=== PATIENT | female | born 1965 | race Caucasian/White ===

== ENCOUNTER 2019-12-31 13:01 | Emergency (ER) | payer OTHER, BC, SELFPAY ==
[2019-12-31] VITALS (9 sets, daily range): BP systolic 119–147; BP diastolic 83–97; PULSE 69–118; RESP 16–20; TEMP 36.8; O2SAT 94–98; BMI 23.9
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
--- NOTE | 2019-12-31 13:15 | ECG_ITS ---
[facility] Test Date: 2019-12-31 Pat Name: Iman Izquierdo Department: Room: Gender: Female Medical Transcriptionist: : 1965 Requested By: Ayaka Mejia Order Number: [id number] Kamla MD: Zonia Jones M.D. Measurements Intervals [place] Rate: 120 P: 55 AR: 128 QRS: -10 QRSD: 94 T: 73 QT: 339 QTc: 480 Interpretive Statements SINUS TACHYCARDIA LOW QRS VOLTAGE IN PRECORDIAL LEADS [QRS DEFLECTION < 1.0 mV IN CHEST LEADS] POSSIBLE ANTERIOR MYOCARDIAL INFARCTION , PROBABLY OLD [30 ms Q WAVE IN V3/V4, OR R < 0.2 mV IN V4] ABNORMAL RHYTHM ECG Compared to ECG 11/16/2017 21:32:10 Low QRS voltage now present Myocardial infarct finding now present Atrial abnormality no longer present Electronically Signed On 12-31-2019 20:21:38 CDT by Zonia Jones M.D. [id number] f
[2019-12-31 13:46] LABS: Basophils % 0.4 %; Eosinophils # 0.1 10^3/uL (0.0-0.8); Hematocrit 40.7 % (37.0-47.0); Hemoglobin 13.8 g/dL (11.5-15.3); Lymphocytes # 1.4 10^3/uL (0.8-4.8); Lymphocytes % 14.5 %; Mean Corpuscular HGB Conc 33.9 g/dL (30.0-36.0); Mean Corpuscular Hemoglobin 31.1 pg (28.0-34.0); Mean Corpuscular Volume 91.7 fL (81-99); Mean Platelet Volume 10.1 fL (7.4-10.4); Monocytes # 0.6 10^3/uL (0.2-0.9); Monocytes % 5.9 %; Neutrophils # 7.46 10^3/uL (1.8-7.7); Neutrophils % 77.6 %; Nucleated Red Blood Cells % 0 %; Platelet Count 251 10^3/cmm (130-400); Red Blood Count 4.44 10^6/uL (4.1-5.3); Red Cell Distribution Width 12.3 % (12.1-15.1); White Blood Count 9.6 10^3/uL (4.0-10.0)
[2019-12-31 14:06] LABS: Alanine Aminotransferase 64 U/L (0-33); Albumin Level 4.7 g/dL (3.5-5.2); Alcohol Level 228 mg/dL (0-10); Alkaline Phosphatase 107 IU/L (35-105); Anion Gap 17.7 (5-19); Aspartate Amino Transferase 84 U/L (0-32); Blood Urea Nitrogen 11 mg/dL (6-20); Calcium 9.4 mg/dL (8.5-10.5); Carbon Dioxide 22 mmol/L (22-29); Chloride 97 mmol/L (98-107); Globulin 2.5 g/dL (1.3-4.6); Glomerular Filtration Rate 87.5 mL/min (90-130); Glucose 129 mg/dL (65-115); Osmolality Calculated 274 mOsm/kg (285-295); Potassium 3.7 mmol/L (3.5-5.1); Sodium 133 mmol/L (136-145); Total Bilirubin 0.3 mg/dL (0.15-1.2); Total Protein 7.2 g/dL (6.6-8.7)
[2019-12-31 14:09] LABS: Troponin(5th) Baseline 6 ng/L (0-10)
[2019-12-31 14:18] LABS: INR 0.92 (0.8-1.2)
--- NOTE | 2019-12-31 15:15 | ECG_ITS ---
[facility] Test Date: 2019-12-31 Pat Name: Iman Izquierdo Department: Room: Gender: Female Porcelain Enameler: : 1965 Requested By: Ayaka Mejia Order Number: [id number] Kamla MD: Zonia Jones M.D. Measurements Intervals [place] Rate: 109 P: 58 NM: 132 QRS: -19 QRSD: 85 T: 101 QT: 300 QTc: 405 Interpretive Statements SINUS TACHYCARDIA POSSIBLE LEFT ATRIAL ENLARGEMENT [-0.1mV P WAVE IN V1/V2] LOW QRS VOLTAGE IN PRECORDIAL LEADS [QRS DEFLECTION < 1.0 mV IN CHEST LEADS] POSSIBLE ANTERIOR MYOCARDIAL INFARCTION , PROBABLY OLD [30 ms Q WAVE IN V3/V4, OR R < 0.2 mV IN V4] ABNORMAL RHYTHM ECG Compared to ECG 12/31/2019 13:27:08 No significant changes Electronically Signed On 12-31-2019 20:25:09 CDT by Zonia Jones M.D. [id number] f
[2019-12-31] MEDS: sodium chloride 0.9% 1,000 ML 999 ML IV (15:21)
[2019-12-31 16:01] LABS: Troponin 5 2HR 7.47 ng/L (0-10); Troponin 5 2HR Delta 1.47 ABS# (0-10)
[2019-12-31] MEDS: iohexol 300 mg/mL 100 mL Btl IV (16:05)
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
[2019-12-31] MEDS: ibuprofen 600 mg Tablet PO (16:51)
[2019-12-31 17:10] LABS: Add Urine Microscopic? NO
[2019-12-31 17:26] LABS: Bilirubin Urine Neg (Negative); Blood Urine Neg (Negative); Glucose Urine UA Norm (Normal); Ketones Urine Negative (Negative); Leukocyte Esterase Urine Negative (Negative); Nitrate Urine Negative (Negative); Protein Urine Neg (Negative); Urine Appearance Clear (CLEAR); Urine Color Yellow (Yellow); Urobilinogen Urine Norm (Negative); pH Urine 6.5 (5-7)
[2019-12-31 17:29] LABS: Amphetamines Screen Urine Negative (Negative); Barbiturates Screen Urine Negative (Negative); Benzodiazepines Screen Urine Negative (Negative); Cocaine Screen Urine Negative (Negative); Opiate Screen Urine Negative (Negative); PCP Screen Urine Positive (Negative); THC Screen Urine Positive (Negative)
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
== END 2019-12-31 18:48 | disposition home or self-care (01) ==
PROVIDERS: Emergency Provider Emergency Medicine; PCP Nurse Practitioner Family
DX: S42.295A Other nondisplaced fracture of upper end of left humerus, initial encounter for closed fracture (principal); F10.929 Alcohol use, unspecified with intoxication, unspecified; V89.2XXA Person injured in unspecified motor-vehicle accident, traffic, initial encounter
CPT/HCPCS: 12345; 36415; 70450; 71260; 72125; 73060; 73610; 74177; 80053; 80306; 80307; 81003; 83605; 84484; 85025; 85610; 86850; 86900; 93005; 96360; 99283; 99284; J7030; Q9967

== ENCOUNTER 2025-01-11 12:35 | Outpatient (CLI) | payer BC, SELFPAY ==
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
== END 2025-01-11 12:36 | disposition home or self-care (01) ==
PROVIDERS: PCP Nurse Practitioner Family; Visit Provider Nurse Practitioner Family
DX: J40 Bronchitis, not specified as acute or chronic (principal)
CPT/HCPCS: 71046